=== PATIENT | male | born 1970 | race Caucasian/White ===

== ENCOUNTER → 2021-02-17 | Outpatient (CLI) | payer BC ==
[~2021-02-17] MED LIST: CLARITIN10 MG PO; DAYPRO600 M1 PO; MEDROL DOSEPAK4 MG PO; VICODIN 500 MG-1 TAB PO
== END | disposition home or self-care (01) ==
LOC: COVID19 11:40
PROVIDERS: ATTEND Family Medicine
DX: U07.1 COVID-19 (principal)